=== PATIENT | male | born 1980 | race African-American/Black ===

== ENCOUNTER 2017-10-01 08:32 | Emergency (ER) | payer OTHER ==
[2017-10-01] MEDS: DIPHTH,PERTUSS(ACELL),TET TOX 0.5 ML DISP.SYRIN. VAX IM (10:43)
== END 2017-10-01 11:05 | disposition home or self-care (01) ==
LOC: ER 08:32
DX: L08.9 Local infection of the skin and subcutaneous tissue, unspecified (principal); H40.9 Unspecified glaucoma; Z98.42 Cataract extraction status, left eye; Z88.5 Allergy status to narcotic agent
CPT/HCPCS: 73140; 90471; 90715; 99284-25

== ENCOUNTER 2021-06-14 12:42 | Emergency (ER) | payer OTHER ==
[~2021-06-14] VITALS: Ht 165.1 cm; Wt 73.0 kg
[~2021-06-14 12:42] MED LIST: ACET-704 PO; AMLO-187 PO; CIPR500T94 PO; LOSA50TA15 PO; METR500T PO; SULF1TAB24 PO
[2021-06-14 12:59] VITALS: BP 117/81
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
--- NOTE | 2021-06-14 13:35 | RAD ---
EXAM: Cervical spine, 6 views. HISTORY: Pain. COMPARISON: None. FINDINGS: 6 views of the cervical spine are obtained. There is no significant listhesis. The vertebra l bodies are normal in height and the disc spaces are preserved. IMPRESSION: No acute osseous finding. Electronically signed by: Adore Eason MD (06/14/2021 1:32 PM) [id number]
[2021-06-14] MEDS ORDERED: METH-562 PO (13:56)
[2021-06-14] MEDS ORDERED: LIDO1ADH78 TP (13:56)
== END 2021-06-14 14:07 | disposition home or self-care (01) ==
LOC: ER 12:42
DX: M54.2 Cervicalgia (principal); M54.50 Low back pain, unspecified; I10 Essential (primary) hypertension; F17.200 Nicotine dependence, unspecified, uncomplicated; Z88.6 Allergy status to analgesic agent
CPT/HCPCS: 72050; 72100; 99284